=== PATIENT | male | born 1990 | race Caucasian/White ===

== ENCOUNTER 2022-12-18 15:18 | Outpatient (CLI) | payer MEDICAID, OTHER | END 2022-12-18 15:19 | disposition short-term general hospital (02) | LOC: EMS 15:18 | DX: R07.9 Chest pain, unspecified (principal); R00.2 Palpitations; R61 Generalized hyperhidrosis; R11.0 Nausea | CPT/HCPCS: A0425; A0427 ==

== ENCOUNTER 2022-12-24 20:03 | Outpatient (CLI) | payer MEDICAID | END 2022-12-24 23:59 | disposition EMS.NT | LOC: EMS 20:03 | DX: M25.512 Pain in left shoulder (principal) ==